=== PATIENT | female | born 1945 | race Caucasian/White ===

== ENCOUNTER 2017-07-23 18:00 | Emergency (ER) | payer MEDICARE, OTHER ==
[~2017-07-23] VITALS: Ht 157.5 cm; Wt 95.3 kg
[~2017-07-23 18:00] MED LIST: MACROBID 100 M100 MG PO; Z.0.ATENOLOL25 MG
[2017-07-23] MEDS ORDERED: ASPIRIN 81 MG CHEW TAB PO ONE (22:00)
[2017-07-23] MEDS ORDERED: CLONIDINE HCL 0.1 MG TAB PO ONE (22:15)
[2017-07-23 22:44] LABS: BASOPHILS # (AUTO) 0.1 (0.0-0.1); EOSINOPHILS # (AUTO) 0.4 (0.0-0.4); EOSINOPHILS % 4.7 % (0.0-6.0); HEMATOCRIT 45.7 % (34.2-44.1); HEMOGLOBIN 15.3 g/dL (12.0-16.0); LYMPHOCYTES # (AUTO) 2.5 (1.0-3.2); LYMPHOCYTES % 27.6 % (18.0-39.1); MEAN CORPUSCULAR HEMOGLOBIN 31.9 pg (28-32); MEAN CORPUSCULAR HGB CONC 33.5 g/dL (31-35); MEAN CORPUSCULAR VOLUME 95.2 fL (81-99); MONOCYTES # (AUTO) 0.7 (0.2-0.8); MONOCYTES % 7.7 % (4.4-11.3); NEUTROPHILS # (AUTO) 5.2 (2.1-6.9); NEUTROPHILS % 58.7 % (38.7-80.0); PLATELET COUNT 305 x10e3/uL (140-360); RED CELL DISTRIBUTION WIDTH 12.8 % (11.7-14.4)
--- NOTE | 2017-07-23 22:47 | Diagnostic Imaging Report ---
EXAM: CHEST SINGLE (PORTABLE), AP 1 view INDICATION: Exposed unknown chemical at work, cough, shortness of breath COMPARISON: None FINDINGS: LINES/TUBES: None LUNGS: No consolidations or edema. PLEURA: No effusions or pneumothorax. HEART AND MEDIASTINUM: Normal size and contour. BONES AND SOFT TISSUES: No acute findings. IMPRESSION: No acute thoracic abnormality. Signed by: Dr. Nela Bianchi M.D. on 07/23/2017 10:43 PM
[2017-07-23 22:59] LABS: INR 1.04; PARTIAL THROMBOPLASTIN TIME 28.9 seconds (23.8-35.5); PROTHROMBIN TIME 12.8 seconds (11.9-14.5)
[2017-07-23 23:04] VITALS: BP 145/78
[2017-07-23 23:10] LABS: ALANINE AMINOTRANSFERASE 17 IU/L (0-55); ALBUMIN 3.7 g/dL (3.5-5.0); ALBUMIN/GLOBULIN RATIO 0.9 (0.8-2.0); ALKALINE PHOSPHATASE 108 IU/L (40-150); ANION GAP 12.4 mmol/L (8-16); BLOOD UREA NITROGEN 8 mg/dL (7-26); BUN/CREATININE RATIO 10 (6-25); CALCIUM 9.4 mg/dL (8.4-10.2); CARBON DIOXIDE 26 mmol/L (22-29); CHLORIDE 103 mmol/L (98-107); CREATINE KINASE 73 IU/L (29-168); CREATININE, SERUM 0.84 mg/dL (0.57-1.11); EST GLOMERULAR FILTRATION RATE > 60 ML/MIN (60-); GLUCOSE 94 mg/dL (74-118); POTASSIUM 3.4 mmol/L (3.5-5.1); SODIUM 138 mmol/L (136-145)
== END 2017-07-24 03:00 | disposition home or self-care (01) ==
LOC: ER 18:00
DX: R05 Cough (principal); R06.02 Shortness of breath; R06.09 Other forms of dyspnea; R51 Headache; I10 Essential (primary) hypertension
CPT/HCPCS: 36415; 71045; 80053; 82550; 82553; 83880; 84484; 85025; 85610; 85730; 93005; 99284

== ENCOUNTER → 2019-07-19 | Outpatient (CLI) | payer MEDICARE | LOC: RAD 13:08 | PROVIDERS: ATTEND Internal Medicine | DX: R60.9 Edema, unspecified (principal) | CPT/HCPCS: 93971 ==

== ENCOUNTER 2021-01-17 14:25 | Inpatient (IN) | payer MEDICARE, OTHER ==
[~2021-01-17] VITALS: Ht 157.5 cm; Wt 95.3 kg
[2021-01-17] MEDS ORDERED: DEXAMETHASONE SOD PHOS 10 MG/1 ML VIAL IV ONE (14:30)
[2021-01-17 14:57] LABS: BASOPHILS % 0.2 % (0.0-1.0); HEMOGLOBIN 12.6 g/dL (12.0-16.0); LYMPHOCYTES % 19.2 % (18.0-39.1); MEAN CORPUSCULAR HEMOGLOBIN 28.1 pg (28-32); MEAN CORPUSCULAR HGB CONC 30.7 g/dL (31-35); MEAN CORPUSCULAR VOLUME 91.5 fL (81-99); MONOCYTES # (AUTO) 0.5 (0.2-0.8); MONOCYTES % 9.4 % (4.4-11.3); NEUTROPHILS # (AUTO) 3.8 (2.1-6.9); NEUTROPHILS % 70.8 % (38.7-80.0); PLATELET COUNT 177 x10e3/uL (140-360); RED BLOOD COUNT 4.48 x10e6/uL (3.6-5.1); RED CELL DISTRIBUTION WIDTH 13.9 % (11.7-14.4)
[2021-01-17 15:18] LABS: ALBUMIN 3.5 g/dL (3.5-5.0); ANION GAP 16.5 mmol/L (8-16); CALCIUM 8.2 mg/dL (8.4-10.2); CREATININE, SERUM 1.28 mg/dL (0.57-1.11); POTASSIUM 3.5 mmol/L (3.5-5.1)
[2021-01-17 17:41] VITALS: BP 130/91
[2021-01-17] MEDS ORDERED: LISINOPRIL10 MG PO (18:00)
[2021-01-17] MEDS ORDERED: PANTOPRAZOLE SO40 MG PO (18:00)
[2021-01-17] MEDS ORDERED: NEURONTIN300 MG PO (18:00)
[2021-01-17 18:08] VITALS: BP 130/91
[2021-01-17 20:00] VITALS: BP 150/76
[2021-01-17 22:11] VITALS: BP 150/76
[2021-01-17 22:28] VITALS: BP 150/76
[2021-01-18] VITALS: BP 151/76
[2021-01-18 06:08] VITALS: BP 133/83
[2021-01-18] MEDS ORDERED: ALBUTEROL SULFATE HFA 8GM INHALATION AEROSOL INH PRN (06:45)
[2021-01-18 07:29] VITALS: BP 133/83
[2021-01-18] MEDS: CEFTRIAXONE 1 GM in SODIUM CHLORIDE 0.9% 50ML 50 ML IV SCH (08:22)
[2021-01-18] MEDS: GABAPENTIN 300 MG CAP PO SCH ×2 (08:22→16:10)
[2021-01-18] MEDS: PANTOPRAZOLE SOD 40 MG TABEC PO SCH (08:22)
[2021-01-18 09:51] LABS: FERRITIN 140.79 ng/mL (4.63-204.00)
[2021-01-18] MEDS ORDERED: REMDESIVIR 200MG 200 MG in SODIUM CHLORIDE 0.9% 100 ML IV ONE (10:00)
[2021-01-18] MEDS: LISINOPRIL 10 MG TAB PO SCH (10:25)
[2021-01-18 16:00] VITALS: BP 128/67
[2021-01-18] MEDS: DEXAMETHASONE SOD PHOS 10 MG/1 ML VIAL IV SCH (16:10)
[2021-01-18] MEDS: ENOXAPARIN SOD INJ 40 MG/0.4 ML SYR SC SCH (16:10)
[2021-01-18 21:08] VITALS: BP 126/77
[2021-01-19 00:48] VITALS: BP 126/77
[2021-01-19 01:55] VITALS: BP 117/75
[2021-01-19 05:37] VITALS: BP 124/80
[2021-01-19 07:07] VITALS: BP 124/80
[2021-01-19 08:07] LABS: HEMATOCRIT 39.5 % (34.2-44.1); HEMOGLOBIN 12.1 g/dL (12.0-16.0); LYMPHOCYTES # (AUTO) 0.6 (1.0-3.2); LYMPHOCYTES % 12.2 % (18.0-39.1); MEAN CORPUSCULAR HEMOGLOBIN 27.9 pg (28-32); MEAN CORPUSCULAR HGB CONC 30.6 g/dL (31-35); MONOCYTES # (AUTO) 0.5 (0.2-0.8); NEUTROPHILS # (AUTO) 4.1 (2.1-6.9); NEUTROPHILS % 78.4 % (38.7-80.0); PLATELET COUNT 204 x10e3/uL (140-360); RED BLOOD COUNT 4.34 x10e6/uL (3.6-5.1)
[2021-01-19 08:25] LABS: ALBUMIN 2.9 g/dL (3.5-5.0); ALBUMIN/GLOBULIN RATIO 0.9 (0.8-2.0); ANION GAP 14.4 mmol/L (8-16); CALCIUM 8.2 mg/dL (8.4-10.2); CREATININE, SERUM 0.97 mg/dL (0.57-1.11); MAGNESIUM 1.9 MG/DL (1.3-2.1); POTASSIUM 4.4 mmol/L (3.5-5.1)
[2021-01-19] MEDS: PANTOPRAZOLE SOD 40 MG TABEC PO SCH (08:55)
[2021-01-19] MEDS: CEFTRIAXONE 1 GM in SODIUM CHLORIDE 0.9% 50ML 50 ML IV SCH (08:55)
[2021-01-19] MEDS: LISINOPRIL 10 MG TAB PO SCH (08:55)
[2021-01-19] MEDS: GABAPENTIN 300 MG CAP PO SCH ×2 (08:55→16:04)
[2021-01-19] MEDS: REMDESIVIR 100MG 100 MG in SODIUM CHLORIDE 0.9% 100 ML IV SCH (09:36)
[2021-01-19] MEDS: DEXAMETHASONE SOD PHOS 10 MG/1 ML VIAL IV SCH (16:04)
[2021-01-19] MEDS: ENOXAPARIN SOD INJ 40 MG/0.4 ML SYR SC SCH (16:04)
[2021-01-19 21:11] VITALS: BP 104/65
[2021-01-20] VITALS (9 sets, daily range): BP systolic 109–139; BP diastolic 67–99
[2021-01-20] MEDS: PANTOPRAZOLE SOD 40 MG TABEC PO SCH (08:30)
[2021-01-20] MEDS ORDERED: SODIUM CHLORIDE 0.9% 250ML 250 ML ONE (08:43)
[2021-01-20] MEDS: GABAPENTIN 300 MG CAP PO SCH ×2 (08:48→16:07)
[2021-01-20] MEDS: CEFTRIAXONE 1 GM in SODIUM CHLORIDE 0.9% 50ML 50 ML IV SCH (08:48)
[2021-01-20] MEDS: LISINOPRIL 10 MG TAB PO SCH (09:23)
[2021-01-20] MEDS: REMDESIVIR 100MG 100 MG in SODIUM CHLORIDE 0.9% 100 ML IV SCH (10:37)
[2021-01-20] MEDS: ENOXAPARIN SOD INJ 40 MG/0.4 ML SYR SC SCH (16:07)
[2021-01-20] MEDS: DEXAMETHASONE SOD PHOS 10 MG/1 ML VIAL IV SCH (16:07)
[2021-01-21 01:56] VITALS: BP 139/80
[2021-01-21 06:32] VITALS: BP 133/75
[2021-01-21 07:12] VITALS: BP 133/75
[2021-01-21] MEDS ORDERED: SODIUM CHLORIDE 0.9% 250ML 250 ML ONE (08:47)
[2021-01-21] MEDS: LISINOPRIL 10 MG TAB PO SCH (08:52)
[2021-01-21] MEDS: CEFTRIAXONE 1 GM in SODIUM CHLORIDE 0.9% 50ML 50 ML IV SCH (08:52)
[2021-01-21] MEDS: GABAPENTIN 300 MG CAP PO SCH ×2 (08:52→16:13)
[2021-01-21] MEDS: PANTOPRAZOLE SOD 40 MG TABEC PO SCH (08:52)
[2021-01-21] MEDS: REMDESIVIR 100MG 100 MG in SODIUM CHLORIDE 0.9% 100 ML IV SCH (10:10)
[2021-01-21] MEDS ORDERED: SODIUM CHLORIDE 0.9% 100 ML ONE (10:13)
[2021-01-21] MEDS: BARICITINIB 2 MG TABLET PO SCH (11:56)
[2021-01-21] MEDS: DEXAMETHASONE SOD PHOS 10 MG/1 ML VIAL IV SCH (16:13)
[2021-01-21] MEDS: ENOXAPARIN SOD INJ 40 MG/0.4 ML SYR SC SCH (16:13)
[2021-01-21 19:45] VITALS: BP 116/69
[2021-01-21 21:00] VITALS: BP 116/69
[2021-01-22] VITALS (7 sets, daily range): BP systolic 127–163; BP diastolic 80–93
[2021-01-22 05:05] LABS: BASOPHILS % 0.2 % (0.0-1.0); HEMATOCRIT 41.4 % (34.2-44.1); HEMOGLOBIN 12.9 g/dL (12.0-16.0); LYMPHOCYTES % 16.4 % (18.0-39.1); MEAN CORPUSCULAR HEMOGLOBIN 27.8 pg (28-32); MEAN CORPUSCULAR HGB CONC 31.2 g/dL (31-35); MEAN CORPUSCULAR VOLUME 89.2 fL (81-99); MONOCYTES # (AUTO) 0.6 (0.2-0.8); MONOCYTES % 9.7 % (4.4-11.3); NEUTROPHILS # (AUTO) 4.3 (2.1-6.9); NEUTROPHILS % 72.8 % (38.7-80.0); PLATELET COUNT 302 x10e3/uL (140-360); RED BLOOD COUNT 4.64 x10e6/uL (3.6-5.1); RED CELL DISTRIBUTION WIDTH 13.9 % (11.7-14.4)
[2021-01-22 05:23] LABS: ALBUMIN 2.9 g/dL (3.5-5.0); ALBUMIN/GLOBULIN RATIO 0.7 (0.8-2.0); ANION GAP 13.8 mmol/L (8-16); CALCIUM 8.4 mg/dL (8.4-10.2); CREATININE, SERUM 0.93 mg/dL (0.57-1.11); POTASSIUM 3.8 mmol/L (3.5-5.1)
[2021-01-22] MEDS: PANTOPRAZOLE SOD 40 MG TABEC PO SCH (09:12)
[2021-01-22] MEDS: BARICITINIB 2 MG TABLET PO SCH (09:12)
[2021-01-22] MEDS: GABAPENTIN 300 MG CAP PO SCH ×2 (09:12→16:20)
[2021-01-22] MEDS: LISINOPRIL 10 MG TAB PO SCH (09:13)
[2021-01-22] MEDS: CEFTRIAXONE 1 GM in SODIUM CHLORIDE 0.9% 50ML 50 ML IV SCH (09:18)
[2021-01-22] MEDS: REMDESIVIR 100MG 100 MG in SODIUM CHLORIDE 0.9% 100 ML IV SCH (10:52)
[2021-01-22] MEDS: DEXAMETHASONE SOD PHOS 10 MG/1 ML VIAL IV SCH (16:20)
[2021-01-22] MEDS: ENOXAPARIN SOD INJ 40 MG/0.4 ML SYR SC SCH (16:20)
[2021-01-23] VITALS (8 sets, daily range): BP systolic 123–160; BP diastolic 76–100
[2021-01-23] MEDS ORDERED: CEFTRIAXONE 1 GM VIAL ONE (07:34)
[2021-01-23] MEDS ORDERED: SODIUM CHLORIDE 0.9% 50ML 50 ML ONE (07:59)
[2021-01-23] MEDS: CEFTRIAXONE 1 GM in SODIUM CHLORIDE 0.9% 50ML 50 ML IV SCH (08:35)
[2021-01-23] MEDS: PANTOPRAZOLE SOD 40 MG TABEC PO SCH (08:35)
[2021-01-23] MEDS: LISINOPRIL 10 MG TAB PO SCH (08:35)
[2021-01-23] MEDS: GABAPENTIN 300 MG CAP PO SCH ×2 (08:35→16:29)
[2021-01-23] MEDS: BARICITINIB 2 MG TABLET PO SCH (08:35)
[2021-01-23] MEDS: DEXAMETHASONE SOD PHOS 10 MG/1 ML VIAL IV SCH (16:29)
[2021-01-23] MEDS: ENOXAPARIN SOD INJ 40 MG/0.4 ML SYR SC SCH (16:29)
[2021-01-23] MEDS ORDERED: ACETAMINOPHEN 325 MG TAB PO PRN (21:30)
[2021-01-24] VITALS (8 sets, daily range): BP systolic 106–132; BP diastolic 68–87
[2021-01-24] MEDS: GABAPENTIN 300 MG CAP PO SCH ×2 (07:55→17:26)
[2021-01-24] MEDS: PANTOPRAZOLE SOD 40 MG TABEC PO SCH (07:55)
[2021-01-24] MEDS: BARICITINIB 2 MG TABLET PO SCH (07:55)
[2021-01-24] MEDS: CEFTRIAXONE 1 GM in SODIUM CHLORIDE 0.9% 50ML 50 ML IV SCH (07:55)
[2021-01-24] MEDS: LISINOPRIL 10 MG TAB PO SCH (08:50)
[2021-01-24] MEDS: ENOXAPARIN SOD INJ 40 MG/0.4 ML SYR SC SCH (17:26)
[2021-01-24] MEDS: DEXAMETHASONE SOD PHOS 10 MG/1 ML VIAL IV SCH (17:26)
[2021-01-25] VITALS (10 sets, daily range): BP systolic 104–132; BP diastolic 65–79
[2021-01-25 07:08] LABS: BASOPHILS % 0.1 % (0.0-1.0); HEMATOCRIT 40.4 % (34.2-44.1); HEMOGLOBIN 12.4 g/dL (12.0-16.0); LYMPHOCYTES # (AUTO) 0.9 (1.0-3.2); LYMPHOCYTES % 13.5 % (18.0-39.1); MEAN CORPUSCULAR HEMOGLOBIN 27.3 pg (28-32); MEAN CORPUSCULAR HGB CONC 30.7 g/dL (31-35); MONOCYTES # (AUTO) 0.6 (0.2-0.8); MONOCYTES % 8.2 % (4.4-11.3); NEUTROPHILS # (AUTO) 5.3 (2.1-6.9); NEUTROPHILS % 76.9 % (38.7-80.0); PLATELET COUNT 363 x10e3/uL (140-360); RED BLOOD COUNT 4.54 x10e6/uL (3.6-5.1); RED CELL DISTRIBUTION WIDTH 13.8 % (11.7-14.4)
[2021-01-25 07:28] LABS: ALBUMIN 2.8 g/dL (3.5-5.0); ALBUMIN/GLOBULIN RATIO 0.8 (0.8-2.0); ANION GAP 13.2 mmol/L (8-16); CALCIUM 8.7 mg/dL (8.4-10.2); POTASSIUM 4.2 mmol/L (3.5-5.1)
[2021-01-25] MEDS: PANTOPRAZOLE SOD 40 MG TABEC PO SCH (08:29)
[2021-01-25] MEDS: BARICITINIB 2 MG TABLET PO SCH (08:29)
[2021-01-25] MEDS: GABAPENTIN 300 MG CAP PO SCH ×2 (08:29→16:34)
[2021-01-25] MEDS: CEFTRIAXONE 1 GM in SODIUM CHLORIDE 0.9% 50ML 50 ML IV SCH (08:29)
[2021-01-25] MEDS: LISINOPRIL 10 MG TAB PO SCH (08:54)
[2021-01-26 00:20] VITALS: BP 112/73
[2021-01-26 04:25] VITALS: BP 120/64
[2021-01-26] MEDS: LISINOPRIL 10 MG TAB PO SCH (08:20)
[2021-01-26] MEDS: PANTOPRAZOLE SOD 40 MG TABEC PO SCH (08:20)
[2021-01-26] MEDS: BARICITINIB 2 MG TABLET PO SCH (08:20)
[2021-01-26] MEDS: GABAPENTIN 300 MG CAP PO SCH ×2 (08:20→17:28)
[2021-01-26] MEDS: CEFTRIAXONE 1 GM in SODIUM CHLORIDE 0.9% 50ML 50 ML IV SCH (08:20)
[2021-01-26 10:16] VITALS: BP 112/62
[2021-01-26 10:18] VITALS: BP 112/62
[2021-01-26] MEDS: ENOXAPARIN SOD INJ 40 MG/0.4 ML SYR SC SCH (17:28)
[2021-01-26 20:00] VITALS: BP_SYST 96; BP_DIAS 61; BP_DIAS 91
[2021-01-27] VITALS (7 sets, daily range): BP systolic 90–115; BP diastolic 61–75
[2021-01-27] MEDS ORDERED: CEFTRIAXONE 1 GM VIAL ONE (08:18)
[2021-01-27] MEDS: BARICITINIB 2 MG TABLET PO SCH (09:09)
[2021-01-27] MEDS: PANTOPRAZOLE SOD 40 MG TABEC PO SCH (09:09)
[2021-01-27] MEDS: GABAPENTIN 300 MG CAP PO SCH ×2 (09:09→16:23)
[2021-01-27] MEDS: CEFTRIAXONE 1 GM in SODIUM CHLORIDE 0.9% 50ML 50 ML IV SCH (09:09)
[2021-01-27] MEDS: LISINOPRIL 10 MG TAB PO SCH (09:09)
[2021-01-27] MEDS: DEXAMETHASONE SOD PHOS 10 MG/1 ML VIAL IV SCH (09:09)
[2021-01-27] MEDS: ENOXAPARIN SOD INJ 40 MG/0.4 ML SYR SC SCH (16:23)
[2021-01-28 00:11] VITALS: BP 132/92
[2021-01-28 06:49] LABS: BASOPHILS % 0.1 % (0.0-1.0); EOSINOPHILS % 0.3 % (0.0-6.0); HEMATOCRIT 40.3 % (34.2-44.1); HEMOGLOBIN 12.5 g/dL (12.0-16.0); LYMPHOCYTES # (AUTO) 1.1 (1.0-3.2); MEAN CORPUSCULAR HEMOGLOBIN 27.7 pg (28-32); MEAN CORPUSCULAR VOLUME 89.2 fL (81-99); MONOCYTES # (AUTO) 0.7 (0.2-0.8); NEUTROPHILS # (AUTO) 5.6 (2.1-6.9); NEUTROPHILS % 72.2 % (38.7-80.0); PLATELET COUNT 358 x10e3/uL (140-360); RED BLOOD COUNT 4.52 x10e6/uL (3.6-5.1); RED CELL DISTRIBUTION WIDTH 13.6 % (11.7-14.4)
[2021-01-28 07:12] LABS: ANION GAP 11.3 mmol/L (8-16); CALCIUM 8.5 mg/dL (8.4-10.2); CREATININE, SERUM 0.93 mg/dL (0.57-1.11); POTASSIUM 4.3 mmol/L (3.5-5.1)
[2021-01-28] MEDS: PANTOPRAZOLE SOD 40 MG TABEC PO SCH ×2 (07:30→10:38)
[2021-01-28 08:00] VITALS: BP 113/76
[2021-01-28] MEDS: DEXAMETHASONE SOD PHOS 10 MG/1 ML VIAL IV SCH ×2 (09:14→10:38)
[2021-01-28] MEDS: BARICITINIB 2 MG TABLET PO SCH ×2 (09:14→10:38)
[2021-01-28] MEDS: ENOXAPARIN SOD INJ 40 MG/0.4 ML SYR SC SCH (09:15)
[2021-01-28] MEDS: LISINOPRIL 10 MG TAB PO SCH ×2 (09:15→10:39)
[2021-01-28 10:45] VITALS: BP 113/76
[2021-01-28 12:00] VITALS: BP 120/67
== END 2021-01-28 15:00 | disposition home or self-care (01) | DRG 871 ==
LOC: ER 14:30 → ERHOLD 14:32 → IMCU 17:05
PROVIDERS: ADMIT Internal Medicine; ATTEND Internal Medicine
PROC: 3E0333Z Introduction of Anti-inflammatory into Peripheral Vein, Percutaneous Approach (ICD-10-PCS; principal; 2021-01-17)
PROC: XW033E5 Introduction of Remdesivir Anti-infective into Peripheral Vein, Percutaneous Approach, New Technology Group 5 (ICD-10-PCS; 2021-01-18)
DX: A41.89 Other specified sepsis (principal); U07.1 COVID-19; J12.82 Pneumonia due to coronavirus disease 2019; J96.01 Acute respiratory failure with hypoxia; K21.9 Gastro-esophageal reflux disease without esophagitis; E78.5 Hyperlipidemia, unspecified; I12.9 Hypertensive chronic kidney disease with stage 1 through stage 4 chronic kidney disease, or unspecified chronic kidney disease; N18.30 Chronic kidney disease, stage 3 unspecified; E66.01 Morbid (severe) obesity due to excess calories; Z68.38 Body mass index [BMI] 38.0-38.9, adult; Z87.440 Personal history of urinary (tract) infections; Z82.49 Family history of ischemic heart disease and other diseases of the circulatory system; G62.9 Polyneuropathy, unspecified; R53.83 Other fatigue
CPT/HCPCS: 36415; 71045; 80048; 80053; 82728; 83615; 83735; 85025; 86140; 93005; 99284; J0456; J0696; J1100; J1650; J7050; U0002

== ENCOUNTER 2021-12-26 16:05 | Emergency (ER) | payer OTHER ==
[~2021-12-26] VITALS: Ht 309.9 cm; Wt 95.3 kg
[~2021-12-26 16:05] MED LIST changes: +LISINOPRIL10 MG PO; +NEURONTIN300 MG PO; +PANTOPRAZOLE SO40 MG PO
[2021-12-26] MEDS ORDERED: ULTRAM 50MG50 MG PO (19:10)
== END 2021-12-26 19:10 | disposition home or self-care (01) ==
LOC: ER 17:05
DX: M25.562 Pain in left knee (principal); M25.522 Pain in left elbow; M21.371 Foot drop, right foot; W18.39XA Other fall on same level, initial encounter; Y93.01 Activity, walking, marching and hiking; Y92.238 Other place in hospital as the place of occurrence of the external cause; I10 Essential (primary) hypertension; E66.9 Obesity, unspecified
CPT/HCPCS: 99283